=== PATIENT | female | born 1935 | race Caucasian/White ===

== ENCOUNTER 2016-11-12 19:21 | Emergency (ER) | payer MEDICARE, OTHER ==
--- NOTE | 2016-11-12 20:06 | ER NURSING DOCUMENTATION ---
Nurse's Notes [facility] Name:Senia Meyer Age:81 yrs Sex:Female :1935 Arrival Date:11/12/2016 Time:19:21 Bed1 Private MD:Lloyd Carr Diagnosis:Tick Bite Presentation: 11/12 19:28 Presenting complaint: Patient states: PT had irritation on the center of her mid back rh for 4 days. Pt's pulled a tick of her back this evening and she has a bulls eye rash on her back now with a blackened center. 19:28 Acuity: JEMIMA 4 rh 19:32 Transition of care: Home. rh 19:32 Method Of Arrival: Private Vehicle Triage Assessment: 19:33 Bite description: bite sustained to thoracic area is superficial, from insect by a rh tick. General: Appears in no apparent distress, Behavior is cooperative. Pain: Denies pain. Derm: Rash noted that is red, raised, on thoracic area Bulls eye shaped rash, ophthalmic surgeon red on outer ring, inner ring is purple with black center. Musculoskeletal: Circulation, motion, and sensation intact Range of motion intact in all extremities. Historical: - Allergies: No known drug Allergies; - Tetanus: < 10 years. - Ebola Screening: : Patient negative for fever greater than or equal to 101.5 degrees Fahrenheit, and additional compatible Ebola Virus Disease symptoms. - Immunization history: Flu Vaccine None. - Social history: Smoking status: Patient states was never smoker of tobacco. Screenin:36 Infectious Disease Risk None. Abuse screen: Denies threats or abuse. Denies injuries rh from another. Nutritional screening: No deficits noted. Assessment: 19:36 See Triage Assessment done by same RN. rh Vital Signs: 19:35 BP 152 / 71; Pulse 76; Resp 16; Temp 97.6; Pulse Ox 94% on R/A; Weight 58.97 kg; Height rh 5 ft. 3 in. (160.02 cm); Pain 0/10; 19:35 Body Mass Index 23.03 (58.97 kg, 160.02 cm) rh ED Course: 19:23 Patient arrived in ED. ma1 19:24 Lloyd Carr MD is Private Physician. ma1 19:28 Yeny Melgar is Primary Nurse. 19:30 Notified ED Physician of patient's arrival and chief complaint. Dr. Jackson notified. rh 19:32 Triage completed. rh 19:36 Valuables Remains with patient Patient has correct armband on for positive rh identification. Bed in low position. Call light in reach. Family accompanied patient. 19:43 Benito Jackson MD is Attending Physician. leonidas 20:00 Lloyd Carr MD is Referral Physician. leonidas Administered Medications: No medications were administered Outcome: 20:00 Discharge ordered by . 20:05 Discharged to home ambulatory, with family. 20:05 Condition: stable 20:05 Discharge Assessment: Patient awake, alert and oriented x 3. No cognitive and/or functional deficits noted. Patient verbalized understanding of disposition instructions. 20:05 Discharge instructions given to patient, significant other, Instructed on discharge instructions, follow up and referral plans. medication usage, Demonstrated understanding of instructions, medications, Prescriptions given X 1. 20:05 Patient left the ED. 11/13 10:33 Discharge F/U Call: Unable to reach: no answer 11/14 10:40 Discharge F/U Call: Spoke with: patient. spouse with permission of patient. Name: the redness is decreasing. pt asked about using any lotions and was instructed not to use them till the redness had resolve so as not to sped the infection. Signatures: Alka Pickard, RN Benito Collins MD MD jm Hofsess, Rachel Liv Campos
--- NOTE | 2016-11-12 20:06 | ER PHYSICIAN DOCUMENTATION ---
Physician Documentation [facility] Name:Senia Meyer Age:81 yrs Sex:Female :1935 Arrival Date:11/12/2016 Time:19:21 Bed1 Private MD:Lloyd Carr ED, John Disposition: 11/12/16 20:00 Discharged to Home/Self Care. Impression: Tick Bite. - Condition is Good. - Discharge Instructions: TICK BITE, Abx Tx. - Prescriptions for Doxycycline Hyclate 100 mg Oral Tablet - take 1 tablet by ORAL route every 12 hours; 20 tablet. - Medical Reconciliation form form. - Follow up: Lloyd Carr MD; When: 7 - 10 days; Reason: Continuance of care. - Problem is new. - Symptoms have improved. HPI: 11/13 10:47 This 81 yrs old Female presents to ER via Private Vehicle with complaints of jm Insect Bite. 10:47 The patient was bitten on the thoracic area, by tick. Onset: The symptom(s)/episode jm began/occurred 4 day(s) ago. pulled of the tick and noted a large Bullseye lesion on her back. . Historical: - Allergies: No known drug Allergies; - Tetanus: < 10 years. - Ebola Screening: : Patient negative for fever greater than or equal to 101.5 degrees Fahrenheit, and additional compatible Ebola Virus Disease symptoms. - Immunization history: Flu Vaccine None. - Social history: Smoking status: Patient states was never smoker of tobacco. ROS: 10:47 Constitutional: Negative for fever. jm 10:47 Skin: Positive for rash. 10:47 Neuro: Negative for numbness, tingling. Exam: 10:47 Constitutional: The patient appears alert, awake. jm 10:47 Cardiovascular: Rate: normal, Rhythm: regular, Pulses: no pulse deficits are appreciated. 10:47 Skin: Appearance: Temperature: normal temperature, classic bullseye rash around the tick. I was able to pull out the mouthparts. Vital Signs: 11/12 19:35 BP 152 / 71; Pulse 76; Resp 16; Temp 97.6; Pulse Ox 94% on R/A; Weight 58.97 kg; Height rh 5 ft. 3 in. (160.02 cm); Pain 0/10; 19:35 Body Mass Index 23.03 (58.97 kg, 160.02 cm) MDM: 19:43 Patient medically screened. leonidas 11/13 10:54 Differential diagnosis: cellulitis. Data reviewed: vital signs, nurses notes, and as a jm result, I will discharge patient. Test interpretation: by ED physician or midlevel provider: not applicable. Counseling: I had a detailed discussion with the patient and/or guardian regarding: the historical points, exam findings, and any diagnostic results supporting the discharge/admit diagnosis, the need for outpatient follow up, with the patient's primary care provider. ED course: Although there has been no Lyme disease in [place], pt does have Bullseye lesion w or w/o apparent cellulitis, so we will treat w doxy and send home. . Dispensed Medications: No medications were administered Signatures: Benito Jackson MD MD jm Hofsess, Rachel
== END 2016-11-12 20:05 | disposition home or self-care (01) ==
LOC: ER 19:21
DX: S20.469A Insect bite (nonvenomous) of unspecified back wall of thorax, initial encounter (principal); W57.XXXA Bitten or stung by nonvenomous insect and other nonvenomous arthropods, initial encounter
CPT/HCPCS: 99282